=== PATIENT | female | born 1985 | race Caucasian/White ===

== ENCOUNTER 2016-11-18 20:22 | Emergency (ER) | payer MEDICAID ==
[~2016-11-18] VITALS: Ht 170.2 cm; Wt 113.4 kg
[~2016-11-18 20:22] MED LIST: Acetaminophen PO; CYCL-343 PO; FERR-58 PO; HYDR-3326 PO
--- NOTE | 2016-11-18 20:34 | NUR ---
PT WALKED INTO WITH C/O ABD PAIN ,N/V AND MIGRAINE STARTED EARLIER TODAY, PT IS ALERT, ORIENTED X 4, NO RESP DISTRESS NOTED OR REPORTED UPON ASSESSMENT... MD AT BEDSIDE...
[2016-11-18] MEDS ORDERED: IV NORMAL SALINE 1000 ML BAG IV ONE (21:00)
[2016-11-18] MEDS ORDERED: MORPHINE SULFATE 2 MG/1 ML DISP.SYRIN IV ONE (21:00)
[2016-11-18] MEDS ORDERED: ONDANSETRON 4 MG/2 ML VIAL IV ONE (21:00)
[2016-11-18 21:06] LABS: BASOPHILS % (AUTO) 0.4 % (0.0-2.0); EOSINOPHILS # (AUTO) 0.1 K/uL (0.0-0.7); EOSINOPHILS % (AUTO) 2.2 % (0.0-7.0); HEMATOCRIT 37.1 % (37-47); HEMOGLOBIN 12.7 G/DL (12.0-16.0); LYMPHOCYTES # (AUTO) 2.4 K/uL (20.0-40.0); LYMPHOCYTES % (AUTO) 43.1 % (20.5-51.5); MEAN CORPUSCULAR HEMOGLOBIN 26.2 UUG (27.0-31.0); MEAN CORPUSCULAR HGB CONC 34 g/dL (32.0-37.0); MEAN CORPUSCULAR VOLUME 76.4 FL (81.0-99.0); MONOCYTES # (AUTO) 0.4 K/uL (2.0-10.0); NEUTROPHILS # (AUTO) 2.7 K/uL (1.8-8.9); NEUTROPHILS % (AUTO) 46.3 % (38.5-71.5); PLATELET COUNT (AUTO) 340 K/UL (150-450); RED BLOOD CELL COUNT(AUTO) 4.86 MIL/UL (4.2-5.4); RED CELL DISTRIBUTION WIDTH 13.9 % (11.5-14.5); WHITE BLOOD COUNT (AUTO) 5.6 K/UL (4.0-11.2)
[2016-11-18 21:14] LABS: ALANINE AMINOTRANSFERASE 23 U/L (14-59); ALBUMIN 3.7 g/dL (3.4-5.0); ALKALINE PHOSPHATASE 78 U/L (50-136); ASPARTATE AMINOTRANSFERASE 20 U/L (15-37); BILIRUBIN,DIRECT < 0.1 mg/dL (0.0-0.2); BILIRUBIN,TOTAL 0.2 mg/dL (0.2-1.0); CALCIUM 8.8 mg/dL (8.5-10.1); CARBON DIOXIDE 27 mmol/L (21-32); CHLORIDE 104 mmol/L (98-107); CREATININE 0.7 mg/dL (0.6-1.3); GFR 96 mL/min (>60); GLUCOSE 107 mg/dL (74-106); LIPASE 154 U/L (73-393); POTASSIUM 3.6 mmol/L (3.5-5.1); SODIUM SERUM 140 mmol/L (136-145); TOTAL PROTEIN, SERUM 8.7 g/dL (6.4-8.2); UREA NITROGEN, BLOOD 9 mg/dL (7-18)
[2016-11-18] MEDS ORDERED: MORPHINE SULFATE 2 MG/1 ML DISP.SYRIN ONE (21:24)
[2016-11-18] MEDS ORDERED: ONDANSETRON 4 MG/2 ML VIAL ONE (21:24)
[2016-11-18] MEDS ORDERED: HYDROCODONE/APAP 5-325MG TABLET PO ONE (21:45)
[2016-11-18] MEDS ORDERED: HYDROCODONE/APAP 5-325MG TABLET ONE (21:52)
[2016-11-18 23:08] LABS: *BILIRUBIN,URIN NEGATIVE (NEGATIVE); *BLOOD, URINE NEGATIVE (NEGATIVE); *COLOR,URINE YELLOW (YELLOW); *KETONES,URINE NEGATIVE (NEGATIVE); *PROTEIN,URINE NEGATIVE (NEGATIVE); *UROBILINOGEN,URINE 0.2 E.U./dl (NORMAL); LEUKOCYTE ESTERASE ,URINE NEGATIVE (NEGATIVE); NITRITE, URINE NEGATIVE (NEGATIVE); UGLUCOSE NEGATIVE (NEGATIVE)
[2016-11-18 23:10] LABS: *CLARITY,URINE HAZY (CLEAR)
[2016-11-18 23:13] LABS: *URINE HCG, QUAL NEGATIVE (NEGATIVE)
[2016-11-18 23:31] LABS: BACTERIA,URINE FEW /HPF (NONE SEEN); RBC,URINE NONE SEEN /HPF (0-3); SQUAMOUS EPITHELIAL CELL,UR MODERATE /HPF (NONE SEEN); WBC,URINE 0-3 /HPF (0-3)
--- NOTE | 2016-11-18 23:43 | NUR ---
Patient discharged to home in stable conditon. Written and verbal after care instructions given. Patient verbalizes understanding of instructions. pt walked out of ER unassisted with and belongings at side...
[2016-11-18 23:45] VITALS: BP 131/94
== END 2016-11-18 23:46 | disposition home or self-care (01) ==
LOC: ER 20:24
DX: K80.50 Calculus of bile duct without cholangitis or cholecystitis without obstruction (principal); E66.9 Obesity, unspecified; E78.1 Pure hyperglyceridemia
CPT/HCPCS: 36415; 80048; 80076; 81001; 83690; 84703; 85025; 96360; 96374; 96375; 99284; A4663; J2270; J2405; J7030

== ENCOUNTER 2017-02-02 18:17 | Emergency (ER) | payer MEDICAID ==
[~2017-02-02] VITALS: Ht 170.2 cm; Wt 113.4 kg
[~2017-02-02 18:17] MED LIST changes: -CYCL-343 PO; +CYCL10TA9 PO
[2017-02-02] MEDS ORDERED: METH-406 PO (18:33)
[2017-02-02] MEDS ORDERED: TRAM50TA2 PO (18:33)
[2017-02-02] MEDS ORDERED: SULFAMETH/TRIMETH 800/160 MG TABLET PO ONE (19:00)
--- NOTE | 2017-02-02 19:10 | NUR ---
Patient discharged to home in stable conditon. Written and verbal after care instructions given. Patient verbalizes understanding of instructions.
[2017-02-02] MEDS ORDERED: SULFAMETH/TRIMETH 800/160 MG TABLET ONE (19:17)
== END 2017-02-02 19:12 | disposition home or self-care (01) ==
LOC: ER 18:17
DX: L03.115 Cellulitis of right lower limb (principal); E66.9 Obesity, unspecified; D50.9 Iron deficiency anemia, unspecified
CPT/HCPCS: A4663

== ENCOUNTER 2017-05-06 19:45 | Emergency (ER) | payer MEDICAID ==
[~2017-05-06] VITALS: Ht 170.2 cm; Wt 113.4 kg
[~2017-05-06 19:45] MED LIST changes: -Acetaminophen PO; -CYCL10TA9 PO; -FERR-58 PO; -HYDR-3326 PO; +METH-406 PO; +TRAM50TA2 PO
--- NOTE | 2017-05-06 22:11 | NUR ---
Patient discharged to home in stable conditon. Written and verbal after care instructions given. Patient verbalizes understanding of instructions.
== END 2017-05-06 22:12 | disposition home or self-care (01) ==
LOC: ER 19:47
DX: J01.90 Acute sinusitis, unspecified (principal); E66.9 Obesity, unspecified; D50.9 Iron deficiency anemia, unspecified; E78.1 Pure hyperglyceridemia
CPT/HCPCS: 82962; 99283; A4663

== ENCOUNTER 2018-08-16 21:32 | Emergency (ER) | payer BC ==
[~2018-08-16] VITALS: Ht 170.2 cm; Wt 108.9 kg
--- NOTE | 2018-08-16 21:52 | NUR ---
Pt. ambulated into ED accompanied by daughter w/ flu like symptoms - c/o nausea/vomiting/migraine QUINTERO/dizziness x 2 days, pt. states she takes excedrin for QUINTERO and took less than half a percocet for a bulging disc and plantar fasciatis of L foot, abd. s/r/nt/distended, abd. sounds active x 4, states she "has not had appetite",
--- NOTE | 2018-08-16 21:54 | NUR ---
Pt. witnessed vomiting in emesis bag during triage,
[2018-08-16] MEDS ORDERED: IV NORMAL SALINE 500 ML BAG IV ONE (22:00)
[2018-08-16] MEDS ORDERED: PROCHLORPERAZINE EDISYLATE 10 MG/2 ML VIAL IV ONE (22:00)
[2018-08-16] MEDS ORDERED: PROCHLORPERAZINE EDISYLATE 10 MG/2 ML VIAL ONE (22:17)
[2018-08-16 22:18] LABS: BASOPHILS % (AUTO) 0.7 % (0.0-2.0); EOSINOPHILS # (AUTO) 0.1 K/uL (0.0-0.7); EOSINOPHILS % (AUTO) 1.2 % (0.0-7.0); HEMATOCRIT 35.8 % (31.2-41.9); LYMPHOCYTES # (AUTO) 1.6 K/uL (20.0-40.0); LYMPHOCYTES % (AUTO) 39.4 % (20.5-51.5); MEAN CORPUSCULAR HEMOGLOBIN 26.8 uug (24.7-32.8); MEAN CORPUSCULAR HGB CONC 34 g/dL (32.3-35.6); MEAN CORPUSCULAR VOLUME 80.1 fL (75.5-95.3); MONOCYTES # (AUTO) 0.4 K/uL (2.0-10.0); MONOCYTES % (AUTO) 8.8 % (0.0-11.0); NEUTROPHILS # (AUTO) 2.1 K/uL (1.8-8.9); NEUTROPHILS % (AUTO) 49.9 % (38.5-71.5); PLATELET COUNT (AUTO) 255 K/uL (179-408); RED BLOOD CELL COUNT(AUTO) 4.47 MIL/uL (3.63-4.92); WHITE BLOOD COUNT (AUTO) 4.1 K/uL (3.8-11.8)
--- NOTE | 2018-08-16 22:23 | NUR ---
Urine specimen collected and sent to lab
[2018-08-16 22:27] LABS: CREATININE 0.8 mg/dL (0.6-1.3); POTASSIUM 3.9 mmol/L (3.5-5.1)
--- NOTE | 2018-08-16 22:33 | NUR ---
[place] given to pt., pt. now resting in bed w/ eyes closed, IV infusing w/o difficulty
[2018-08-16 22:47] LABS: *URINE HCG, QUAL NEGATIVE (NEGATIVE)
[2018-08-16] MEDS ORDERED: MECLIZINE HCL 25 MG TABLET ONE (22:56)
[2018-08-16] MEDS ORDERED: MECLIZINE HCL 25 MG TABLET PO ONE (23:00)
--- NOTE | 2018-08-16 23:21 | NUR ---
Patient discharged to home in stable conditon. Written and verbal after care instructions given. Patient verbalizes understanding of instructions. Pt. d/c w/ prescription per MD order, d/c papers signed, all belongings w/ pt., ID band/IV removed, ambulated out of ED w/ steady gait accompanied by daughter, awaiting pickup in waiting room from , NAD, instructed not to drive,
== END 2018-08-16 23:23 | disposition home or self-care (01) ==
LOC: ER 21:35 → MERGE 21:35 → ER 23:23
DX: R42 Dizziness and giddiness (principal); R51 Headache
CPT/HCPCS: 36415; 80048; 84703; 85025; 96361; 96374; 99283; J0780; A4663; J7040; J8597

== ENCOUNTER 2018-11-28 02:00 | Emergency (ER) | payer BC ==
[~2018-11-28] VITALS: Ht 170.2 cm; Wt 108.9 kg
[2018-11-28] MEDS ORDERED: OXYC-133 PO (02:08)
[2018-11-28] MEDS ORDERED: MORPHINE SULFATE 2 MG/1 ML DISP.SYRIN IV ONE (02:30)
[2018-11-28] MEDS ORDERED: IV NORMAL SALINE 1000 ML BAG IV ONE (02:30)
[2018-11-28] MEDS ORDERED: ONDANSETRON 4 MG/2 ML VIAL IV ONE (02:30)
[2018-11-28] MEDS ORDERED: MORPHINE SULFATE 2 MG/1 ML DISP.SYRIN ONE (02:34)
[2018-11-28] MEDS ORDERED: ONDANSETRON 4 MG/2 ML VIAL ONE (02:34)
[2018-11-28 02:47] LABS: BASOPHILS % (AUTO) 0.4 % (0.0-2.0); EOSINOPHILS # (AUTO) 0.1 K/uL (0.0-0.7); EOSINOPHILS % (AUTO) 1.4 % (0.0-7.0); HEMATOCRIT 36.5 % (31.2-41.9); HEMOGLOBIN 12.4 g/dL (10.9-14.3); LYMPHOCYTES # (AUTO) 1.6 K/uL (20.0-40.0); LYMPHOCYTES % (AUTO) 36.7 % (20.5-51.5); MEAN CORPUSCULAR HEMOGLOBIN 27.2 uug (24.7-32.8); MEAN CORPUSCULAR HGB CONC 34 g/dL (32.3-35.6); MEAN CORPUSCULAR VOLUME 80.2 fL (75.5-95.3); MONOCYTES # (AUTO) 0.5 K/uL (2.0-10.0); MONOCYTES % (AUTO) 10.7 % (0.0-11.0); NEUTROPHILS # (AUTO) 2.2 K/uL (1.8-8.9); NEUTROPHILS % (AUTO) 50.8 % (38.5-71.5); PLATELET COUNT (AUTO) 219 K/uL (179-408); RED BLOOD CELL COUNT(AUTO) 4.55 MIL/uL (3.63-4.92); WHITE BLOOD COUNT (AUTO) 4.3 K/uL (3.8-11.8)
[2018-11-28 02:55] LABS: CREATININE 0.8 mg/dL (0.6-1.3); POTASSIUM 3.3 mmol/L (3.5-5.1)
[2018-11-28 03:00] LABS: BILIRUBIN,DIRECT 0.1 mg/dL (0.0-0.2); BILIRUBIN,TOTAL 0.4 mg/dL (0.2-1.0); TOTAL PROTEIN, SERUM 8.7 g/dL (6.4-8.2)
[2018-11-28] MEDS ORDERED: MAG HYDROX/AL HYDROX/SIMETH 30 ML LIQUID UDC PO ONE (03:15)
[2018-11-28] MEDS ORDERED: LIDOCAINE VISCUS 2% 15 ML UDC MM ONE (03:15)
[2018-11-28] MEDS ORDERED: LIDOCAINE VISCUS 2% 15 ML UDC ONE (03:22)
[2018-11-28] MEDS ORDERED: MAG HYDROX/AL HYDROX/SIMETH 30 ML LIQUID UDC ONE (03:24)
[2018-11-28 03:53] VITALS: BP 158/91
--- NOTE | 2018-12-05 08:43 | NUR ---
NURSING NOTE: ADDENDUM 11/28/18 0331 IV NORMAL SALINE INFUSED TO RIGHT AC 20G AT 0331.
== END 2018-11-28 03:55 | disposition home or self-care (01) ==
LOC: ER 02:08
DX: K80.50 Calculus of bile duct without cholangitis or cholecystitis without obstruction (principal); Z79.899 Other long term (current) drug therapy
CPT/HCPCS: 36415; 76700; 80048; 80076; 83690; 84702; 85025; 85730; 96374; 96375; 99284; J2270; J2405; A4663; J7030